=== PATIENT | female | born 1980 | race Caucasian/White ===

== ENCOUNTER → 2024-06-10 | Outpatient (CLI) | payer MEDICARE ==
--- NOTE | 2024-06-21 09:40 | MM ---
Reason for Exam: Screening (asymptomatic). Baseline mammogram. Patient History: Menarche at age 12. First Full-Term at age 28. Patient has history of breast feeding. Patient tested for BRCA1 outcome was positive. Patient tested for BRCA2 outcome was positive. Paternal aunt had breast cancer, age 30. Last menstrual period: 06/02/2024 Prior Study Comparison: Patient's first Mammogram. Tissue Density: There are scattered areas of fibroglandular density. Findings: Analyzed By CAD. There is no suspicious group of microcalcifications or new suspicious mass in either breast. Overall Assessment: Negative, BI-RAD 1 Management: Screening Mammogram of both breasts in 1 year. . Patient should continue monthly self-breast exams. A clinical breast exam by your physician is recommended on an annual basis. This exam should not preclude additional follow-up of suspicious palpable abnormalities. Note on Skye scores and lifetime risk: 1. A Skye score greater than 3% is considered moderate risk. If this is the case, consider specialist referral to assess eligibility for a risk reducing agent. 2. If overall lifetime risk for the development of breast cancer is 20% or higher, the patient may qualify for future screening with alternating mammogram and breast MRI. [facility], , 06/21/2024 9:37 AM. Electronically signed and approved by: Celestino Weller M.D. Radiologis
== END | disposition home or self-care (01) ==
LOC: RADMAMWWP 10:49
PROVIDERS: ATTEND Family Medicine
DX: Z12.31 Encounter for screening mammogram for malignant neoplasm of breast
CPT/HCPCS: 77067

== ENCOUNTER → 2024-06-28 | Outpatient (CLI) | payer MEDICARE ==
--- NOTE | 2024-06-28 12:24 | CT ---
EXAMINATION TYPE: CT ChestAbdPelvis wo/w con CT DLP: 2467 mGycm, Automated exposure control for dose reduction was used. DATE OF EXAM: 06/28/2024 11:45 AM COMPARISON: None CLINICAL INDICATION:Female, 43 years old with history of R53.83 fatigue Z80.9 family hx cancer; PHH, r/o right adrenal cancer, pt states shes been having bright red bloody stools, constipation, SOB x6 months Technique: Multiple axial images of the chest, abdomen, and pelvis were obtained before and after the intravenous administration of 100 mL Isovue-300. Oral contrast was administered. Two-dimensional cor onal and sagittal reconstructions were obtained. Findings: CHEST: LUNGS/ PLEURA: The lung parenchyma appears unremarkable. AIRWAY: Patent and unremarkable.. HEART: Size within normal limits. No pericardial effusion. MEDIASTINUM: No evidence of adenopathy. VASCULATURE: No aortic aneurysm. MUSCULOSKELETAL: No acute osseous abnormalities. No aggressive osseous lesion. SOFT TISSUES/LYMPH NODES: Unremarkable. LOWER NECK: No significant findings. ABDOMEN: ABDOMEN LIVER: Unremarkable GALLBLADDER AND BILE DUCTS: The gallbladder is surgically absent. No biliary duct dilatation. PANCREAS: Unremarkable. SPLEEN: Unremarkable. ADRENAL GLANDS: Left adrenal gland is unremarkable. Post surgical changes from right adrenalectomy. N o suspicious soft tissue within the surgical bed to suggest recurrence. KIDNEYS AND URETERS: No evidence of hydronephrosis or renal calculus. The ureters are unremarkable. PELVIS BLADDER: Incompletely distended but grossly unremarkable. REPRODUCTIVE: Gas-filled region within the uterus likely representing a tampon. Left uterine posterio r fundal round 2.9 cm lesion (series 13, image 60). ABDOMEN & PELVIS STOMACH AND BOWEL: Postsurgical changes from gastric sleeve. Enteric contrast reaches the ileocecal j unction. There is eccentric wall thickening of the ascending colon near the cecum measuring up to 1.8 cm measuring approximately 3.5 cm in length (series 11, image 76). No surrounding inflammatory mcneal es identified. The appendix is within normal limits moderate stool burden within the proximal colon s pecifically the hepatic flexure. No evidence of bowel obstruction. PERITONEUM: No evidence of pneumoperitoneum or free fluid. VASCULATURE: No evidence of aortic aneurysm. MUSCULOSKELETAL: No acute osseous abnormalities. No aggressive osseous lesion. LYMPH NODES: No evidence for lymphadenopathy. SOFT TISSUE/ABDOMINAL WALL: Unremarkable IMPRESSION: 1. Abnormal eccentric wall thickening of the ascending colon adjacent to the cecum concerning for pr imary colon neoplasm. Colonoscopy is recommended. 2. Post surgical changes from prior right adrenalectomy. No suspicious soft tissue within the surgic al bed to suggest local recurrence. 3. Left posterior pelvis 2.9 cm lesion which may represent a pedunculated fibroid. Further evaluatio n with ultrasound is recommended. 4. No CT evidence for abnormality within the chest. [facility], , 06/28/2024 12:21 PM
== END | disposition home or self-care (01) ==
LOC: RADCTMAIN 09:39
PROVIDERS: ATTEND Family Medicine
DX: D35.00 Benign neoplasm of unspecified adrenal gland (principal); N39.9 Disorder of urinary system, unspecified; K92.1 Melena; R53.83 Other fatigue; K63.89 Other specified diseases of intestine; Z90.89 Acquired absence of other organs
CPT/HCPCS: 71270; 74178

== ENCOUNTER 2024-07-01 10:15 | Observation (INO) | payer MEDICARE, OTHER ==
[2024-07-01] MEDS: SODIUM CHLORIDE 0.9% 1,000 ML IV STA (11:38)
[2024-07-01] MEDS: FAMOTIDINE 20 MG/2 ML VIAL IV STA (11:39)
[2024-07-01] MEDS: KETOROLAC 15 MG/ML 1 ML VIAL IVP STA (11:40)
[2024-07-01] MEDS: ONDANSETRON 4 MG/2 ML VIAL IVP STA (11:41)
[2024-07-01] MEDS: PANTOPRAZOLE 40 MG/10 ML VIAL IVP STA (11:42)
[2024-07-01 12:09] LABS: Basophils % (A) 1 %; Eosinophils # (A) 0.2 k/uL (0-0.7); Eosinophils % (A) 3 %; HGB 11.7 gm/dL (11.4-16.0); Lymphocytes # (A) 1.8 k/uL (1.0-4.8); Lymphocytes % (A) 31 %; MCH 26.6 pg (25.0-35.0); MCHC 32.5 g/dL (31.0-37.0); MCV 81.9 fL (80.0-100.0); Monocytes # (A) 0.3 k/uL (0-1.0); Monocytes % (A) 6 %; Neutrophils # (A) 3.4 k/uL (1.3-7.7); Neutrophils % (A) 58 %; Platelet Count 318 k/uL (150-450); RBC 4.39 m/uL (3.80-5.40); RDW 15.4 % (11.5-15.5); WBC 5.8 k/uL (3.8-10.6)
[2024-07-01 12:18] LABS: Appearance,Urine Clear (Clear); Bilirubin,Urine Negative (Negative); Blood,Urine Negative (Negative); Color,Urine Colorless; Glucose,Urine (UA) Negative (Negative); Ketones,Urine Negative (Negative); Leukocyte Esterase,Urine Negative (Negative); Nitrite,Urine Negative (Negative); PH, Urine 6.5 (5.0-8.0); Protein,Urine Negative (Negative); Specific Gravity,Urine 1.004 (1.001-1.035); Urobilinogen,Urine <2.0 mg/dL (<2.0)
[2024-07-01 12:21] LABS: ALT 14 U/L (4-34); AST 43 U/L (14-36); African American GFR (CKD) >90 (>60 ml/min/1.73 sqM); Albumin 3.5 g/dL (3.5-5.0); Alkaline Phosphatase 51 U/L (38-126); Amylase 41 U/L (30-110); Anion Gap 4 mmol/L; Blood Urea Nitrogen 16 mg/dL (7-17); Calcium 8.9 mg/dL (8.4-10.2); Carbon Dioxide 27 mmol/L (22-30); Chloride 110 mmol/L (98-107); Glucose 87 mg/dL (74-99); Lipase 298 U/L (23-300); Non-African American GFR(CKD) >90 (>60 ml/min/1.73 sqM); Potassium 4.3 mmol/L (3.5-5.1); Sodium 141 mmol/L (137-145); Total Bilirubin 0.5 mg/dL (0.2-1.3); Total Protein 6.1 g/dL (6.3-8.2)
[2024-07-01 12:40] LABS: C Reactive Protein <0.5 mg/dL (<1.0)
--- NOTE | 2024-07-01 13:03 | ED ---
Abdominal Pain HPI - General Chief Complaint: Abdominal Pain Stated Complaint: GI issues Time Seen by Provider: 07/01/24 10:33 Source: patient, RN notes reviewed Mode of arrival: ambulatory Limitations: no limitations - History of Present Illness Initial Comments: This is a 43-year-old female presenting with GI symptoms since December 2023. Patient endorses recently receiving abdominal CT scan as requested by Dr. Pacheco, her primary care, where it was discovered she had a neoplasm noted in her colon. Patient was advised by Dr. Pacheco to proceed to ER to expedite endoscopy and colonoscopy procedures to identify neoplasm. Patient endorses hematochezia and postprandial vomiting for the past 6 months. States she was at that time diagnosed with gastroparesis. Patient also endorses constipation despite daily use of laxatives, often only going once per week. Patient states she often feels bloated. States stool often appears black to yellow and slimy. Patient also endorses acid reflux-like symptoms with nausea, dizziness and near syncope. Also mentions decreased urinary output without burning with urination. Endorses history of gastric sleeve and pheochromocytoma. Patient denies history of IBS, Crohn's disease, ulcerative colitis, celiac disease. MD Complaint: abdominal pain Onset/Timin -: month(s) Location: LUQ, RLQ - Related Data Home Medications Medication Instructions Recorded Confirmed ALPRAZolam [Xanax] 0.25 mg PO BID PRN 07/01/24 07/01/24 Albuterol Sulfate [Ventolin HFA] 2 puff INHALATION RT-BID 07/01/24 07/01/24 Ascorbic Acid [Vitamin C] 1,000 mg PO DAILY 07/01/24 07/01/24 Biotin [Biotin Disolve] 10,000 mcg PO DAILY 07/01/24 07/01/24 Cholecalciferol (Vitamin D3) 50 mcg PO DAILY 07/01/24 07/01/24 [Vitamin D3 (50 Mcg = 2000 Iu)] Cranberry Fruit Extract [Cranberry] 500 mg PO DAILY 07/01/24 07/01/24 Cyanocobalamin (Vitamin B-12) 1,000 mcg PO DAILY 07/01/24 07/01/24 [Vitamin B-12] DULoxetine HCL [Cymbalta] 30 mg PO HS 07/01/24 07/01/24 Immunity Gummy 1 tab PO DAILY 07/01/24 07/01/24 L.acidoph,Paracasei, B.lactis 1 cap PO DAILY 07/01/24 07/01/24 [Probiotic] Magnesium Glycinate 200 mg PO DAILY 07/01/24 07/01/24 Multivitamins, Thera [Multivitamin 1 tab PO DAILY 07/01/24 07/01/24 (formulary)] Naproxen [Naprosyn] 500 mg PO BID 07/01/24 07/01/24 Zolpidem [Ambien] 5 mg PO HS PRN 07/01/24 07/01/24 hydrOXYzine HCL [Atarax] 25 mg PO BID 07/01/24 07/01/24 Allergies Allergy/AdvReac Type Severity Reaction Status Date / Time amoxicillin Allergy Rash/Hives Verified 07/01/24 15:09 Iodinated Contrast Media Allergy Rash/Hives Verified 07/01/24 15:09 codeine AdvReac Vomiting Verified 07/01/24 15:09 Review of Systems ROS Statement: Those systems with pertinent positive or pertinent negative responses have been documented in the HPI. ROS Other: All systems not noted in ROS Statement are negative. Past Medical History Past Medical History: Cancer, Chest Pain / Angina, CVA/TIA, Fibromyalgia, Seizure Disorder Additional Past Medical History / Comment(s): Adrenal cancer/pheochromocytoma in 2019. Patrice Bar. Thinning of left atrial wall. Past Surgical History: Bariatric Surgery, Section, Cholecystectomy Additional Past Surgical History / Comment(s): in 2009&2013. Gastric sleeve in 2017. Tumor removal with gallbladder removal in 2019. Past Psychological History: Anxiety Smoking Status: Never smoker Past Alcohol Use History: None Reported Past Drug Use History: Marijuana General Exam Limitations: no limitations General appearance: alert, in no apparent distress Head exam: Present: atraumatic, normocephalic, normal inspection Eye exam: Present: normal appearance, PERRL, EOMI. Absent: scleral icterus, conjunctival injection, periorbital swelling ENT exam: Present: normal exam, mucous membranes moist Neck exam: Present: normal inspection. Absent: tenderness, meningismus, lymphadenopathy Respiratory exam: Present: normal lung sounds bilaterally. Absent: respiratory distress, wheezes, rales, rhonchi, stridor Cardiovascular Exam: Present: regular rate, normal rhythm, normal heart sounds. Absent: systolic murmur, diastolic murmur, rubs, gallop, clicks GI/Abdominal exam: Present: soft, tenderness (Positive diffuse tenderness especially in epigastric left upper quadrant and right lower quadrant with voluntary guarding. Positive tympanic tenderness especially in same regions. Negative McBurney's point.), normal bowel sounds, diminished bowel sounds. Absent: distended, guarding, rebound, rigid Extremities exam: Present: normal inspection, full ROM, normal capillary refill. Absent: tenderness, pedal edema, joint swelling, calf tenderness Back exam: Present: normal inspection Neurological exam: Present: alert, oriented X3, CN II-XII intact Psychiatric exam: Present: normal affect, normal mood Skin exam: Present: warm, dry, intact, normal color. Absent: rash Course Vital Signs 07/01/24 07/01/24 10:22 13:06 Temperature 98.1 F Pulse Rate 102 H Respiratory 16 16 Rate Blood Pressure 107/64 105/70 O2 Sat by Pulse 99 Oximetry Medical Decision Making - Medical Decision Making Was pt. sent in by a medical professional or institution (, PA, INDUSTRIAL ENGINEERING PROFESSOR, urgent care, hospital, or jail...) When possible be specific @ -He has. Patient was sent by Dr. Pacheco, her primary care, who sent her to expedite diagnostic testing following recent discovery of colonic neoplasm and CT scan from Friday, June 28, 2024. Did you speak to anyone other than the patient for history (EMS, parent, family, police, friend...)? What history was obtained from this source @ -No Did you review nursing and triage notes (agree or disagree)? Why? @ -I reviewed and agree with nursing and triage notes Were old charts reviewed (outside hosp., previous admission, EMS record, old EKG, old radiological studies, urgent care reports/EKG's, jail records)? Report findings @ -CT scan from June 28 reviewed noting discovery of colonic neoplasm and uterine fibroid. Differential Diagnosis (chest pain, altered mental status, abdominal pain women, abdominal pain men, vaginal bleeding, weakness, fever, dyspnea, syncope, headache, dizziness, GI bleed, back pain, seizure, CVA, palpatations, mental health, musculoskeletal)? @ -Differential Abdominal Pain Women: Appendicitis, Cholecystitis, diverticulosis, ischemic bowel, pancreatitis, hepatitis, UTI, gastroenteritis, AAA, incarcerated hernia, bowel obstruction, constipation, inflammatory bowel, hepatitis, peptic ulcer disease, splenic infarction, perforated viscus, vulvitis, ovarian torsion, PID, kidney stone, placenta abruption, this is not meant to be an all-inclusive list EKG interpreted by me (3pts min.). @ -As above X-rays interpreted by me (1pt min.). @ -None done CT interpreted by me (1pt min.). @ -None done U/S interpreted by me (1pt. min.). @ -None done What testing was considered but not performed or refused? (CT, X-rays, U/S, labs)? Why? @ -None What meds were considered but not given or refused? Why? @ -None Did you discuss the management of the patient with other professionals (professionals i.e. , PA, INDUSTRIAL ENGINEERING PROFESSOR, lab, RT, psych nurse, social worker psychiatric, sandblaster glass, teacher, biological technical officer, case liner)? Give summary @ -Spoke with Dr. Pacheco regarding patient's ongoing management and consult with Mike Patel and Dr. Mercedes for expedited upper/lower endoscopy/colonoscopy. Was smoking cessation discussed for >3mins.? @ -No Was critical care preformed (if so, how long)? @ -No Were there social determinants of health that impacted care today? How? (Homelessness, low income, unemployed, alcoholism, drug addiction, transportation, low edu. Level, literacy, decrease access to med. care, penitentiary, rehab)? @ -No Was there de-escalation of care discussed even if they declined (Discuss DNR or withdrawal of care, Hospice)? DNR status @ -No What co-morbidities impacted this encounter? (DM, HTN, Smoking, COPD, CAD, Cancer, CVA, ARF, Chemo, Hep., AIDS, mental health diagnosis, sleep apnea, morbid obesity)? @ -None Was patient admitted / discharged? Hospital course, mention meds given and route, prescriptions, significant lab abnormalities, going to OR and other pertinent info. @ -Admitted. Initial lab work obtained and patient provided Zofran, Pepcid and Protonix for abdominal pain. Patient noted ongoing pain and given Dilaudid and after patient noted codeine only cause GI symptoms. Initially spoke to Dr. Bishop mcdermott regarding surgical care for patient. Then spoke to Dr. Pacheco then who advised of preference for [facility], Dr. Mercedes for patient care. Spoke to Dr. Ruth again to cancel consult with him. Undiagnosed new problem with uncertain prognosis? @ -No Drug Therapy requiring intensive monitoring for toxicity (Heparin, Nitro, Insulin, Cardizem)? @ -No Were any procedures done? @ -No Diagnosis/symptom? @ -Colonic neoplasm Acute, or Chronic, or Acute on Chronic? @ -Acute on chronic Uncomplicated (without systemic symptoms) or Complicated (systemic symptoms)? @ -Complicated Side effects of treatment? @ -No Exacerbation, Progression, or Severe Exacerbation? @ -Exacerbation Poses a threat to life or bodily function? How? (Chest pain, USA, ND, pneumonia, PE, COPD, DKA, ARF, appy, cholecystitis, CVA, Diverticulitis, Homicidal, Suicidal, threat to staff... and all critical care pts) @ -Possible. Neoplasm with unknown etiology - Lab Data Result diagrams: 07/01/24 11:37 07/01/24 11:37 Lab Results 07/01/24 07/01/24 07/01/24 Range/Units 11:37 11:37 11:37 WBC 5.8 (3.8-10.6) k/uL RBC 4.39 (3.80-5.40) m/uL Hgb 11.7 (11.4-16.0) gm/dL Hct 36.0 (34.0-46.0) % MCV 81.9 (80.0-100.0) fL MCH 26.6 (25.0-35.0) pg MCHC 32.5 (31.0-37.0) g/dL RDW 15.4 (11.5-15.5) % Plt Count 318 (150-450) k/uL MPV 7.0 Neutrophils % 58 % Lymphocytes % 31 % Monocytes % 6 % Eosinophils % 3 % Basophils % 1 % Neutrophils # 3.4 (1.3-7.7) k/uL Lymphocytes # 1.8 (1.0-4.8) k/uL Monocytes # 0.3 (0-1.0) k/uL Eosinophils # 0.2 (0-0.7) k/uL Basophils # 0.0 (0-0.2) k/uL Sodium (137-145) mmol/L Potassium (3.5-5.1) mmol/L Chloride (98-107) mmol/L Carbon Dioxide (22-30) mmol/L Anion Gap mmol/L BUN (7-17) mg/dL Creatinine (0.52-1.04) mg/dL Est GFR (CKD-EPI)AfAm (>60 ml/min/1.73 sqM) Est GFR (CKD-EPI)NonAf (>60 ml/min/1.73 sqM) Glucose (74-99) mg/dL Plasma Lactic Acid Donny (0.7-2.0) mmol/L Calcium (8.4-10.2) mg/dL Total Bilirubin (0.2-1.3) mg/dL AST (14-36) U/L ALT (4-34) U/L Alkaline Phosphatase (38-126) U/L C-Reactive Protein (<1.0) mg/dL Total Protein (6.3-8.2) g/dL Albumin (3.5-5.0) g/dL Amylase (30-110) U/L Lipase (23-300) U/L Urine Color Colorless Urine Appearance Clear (Clear) Urine pH 6.5 (5.0-8.0) Ur Specific [place] 1.004 (1.001-1.035) Urine Protein Negative (Negative) Urine Glucose (UA) Negative (Negative) Urine Ketones Negative (Negative) Urine Blood Negative (Negative) Urine Nitrite Negative (Negative) Urine Bilirubin Negative (Negative) Urine Urobilinogen <2.0 (<2.0) mg/dL Ur Leukocyte Esterase Negative (Negative) Urine HCG, Qual Not Detected (Not Detectd) 07/01/24 07/01/24 Range/Units 11:37 11:37 WBC (3.8-10.6) k/uL RBC (3.80-5.40) m/uL Hgb (11.4-16.0) gm/dL Hct (34.0-46.0) % MCV (80.0-100.0) fL MCH (25.0-35.0) pg MCHC (31.0-37.0) g/dL RDW (11.5-15.5) % Plt Count (150-450) k/uL MPV Neutrophils % % Lymphocytes % % Monocytes % % Eosinophils % % Basophils % % Neutrophils # (1.3-7.7) k/uL Lymphocytes # (1.0-4.8) k/uL Monocytes # (0-1.0) k/uL Eosinophils # (0-0.7) k/uL Basophils # (0-0.2) k/uL Sodium 141 (137-145) mmol/L Potassium 4.3 (3.5-5.1) mmol/L Chloride 110 H (98-107) mmol/L Carbon Dioxide 27 (22-30) mmol/L Anion Gap 4 mmol/L BUN 16 (7-17) mg/dL Creatinine 0.68 (0.52-1.04) mg/dL Est GFR (CKD-EPI)AfAm >90 (>60 ml/min/1.73 sqM) Est GFR (CKD-EPI)NonAf >90 (>60 ml/min/1.73 sqM) Glucose 87 (74-99) mg/dL Plasma Lactic Acid Donny 1.0 (0.7-2.0) mmol/L Calcium 8.9 (8.4-10.2) mg/dL Total Bilirubin 0.5 (0.2-1.3) mg/dL AST 43 H (14-36) U/L ALT 14 (4-34) U/L Alkaline Phosphatase 51 (38-126) U/L C-Reactive Protein <0.5 (<1.0) mg/dL Total Protein 6.1 L (6.3-8.2) g/dL Albumin 3.5 (3.5-5.0) g/dL Amylase 41 (30-110) U/L Lipase 298 (23-300) U/L Urine Color Urine Appearance (Clear) Urine pH (5.0-8.0) Ur Specific [place] (1.001-1.035) Urine Protein (Negative) Urine Glucose (UA) (Negative) Urine Ketones (Negative) Urine Blood (Negative) Urine Nitrite (Negative) Urine Bilirubin (Negative) Urine Urobilinogen (<2.0) mg/dL Ur Leukocyte Esterase (Negative) Urine HCG, Qual (Not Detectd) Disposition Clinical Impression: Colon neoplasm, Hematochezia, Left upper quadrant abdominal pain Disposition: ADMITTED IP TO THIS HOSP Condition: Fair Instructions (If sedation given, give patient instructions): Abdominal Pain (ED) Is patient prescribed a controlled substance at d/c from ED?: No Referrals: Hector Pacheco MD [Primary Care Provider] - 1-2 days Joseph Mercedes MD [REFERRING] - 1-2 days Time of Disposition: 15:35 Decision Date: 07/01/24 Decision Time: 15:35
[2024-07-01] MEDS: HYDROmorphone 0.5 MG/0.5 ML SYRINGE IVP STA (13:04)
[2024-07-01] MEDS: MAG HYDROX/AL HYDROX/SIMETH 30 ML, HYOSCYAMINE ELIXIR 10 ML PO STA (13:04)
--- NOTE | 2024-07-01 14:49 | P.GSHP ---
History of Present Illness H&P Date: 07/01/24 CHIEF COMPLAINT: Abdominal pain HISTORY OF PRESENT ILLNESS: This is a 43-year-old female who presented to the hospital due to abdominal pain with episodes of nausea and vomiting. Also intermittent episodes of bright red blood and black stools. Patient reports issues with constipation and having to be on laxatives daily. She had a CT scan of the abdomen and pelvis completed outpatient by her PCP that had reported abnormal eccentric wall thickening of the ascending colon adjacent to the cecum concerning for primary colon neoplasm. Patient complains of abdominal bloating. Reports decreased appetite. She does report a 15 pound weight gain. She has been having night sweats. She does have a history of adrenal cancer in 2019 status post resection. She has a history of an aunt with rectal cancer. Patient denies any smoking denies any alcohol use. She reports her last EGD was in 2017 and was unremarkable. PAST MEDICAL HISTORY: Adrenal cancer, pheochromocytoma in 2019 thinning of left atrial wall. TIAs, seizures PAST SURGICAL HISTORY: Sleeve gastrectomy 2017, x 2, cholecystectomy, adrenal tumor removed with gallbladder removal in 2019 MEDICATIONS: See below ALLERGIES: See below SOCIAL HISTORY: No illicit drug use. REVIEW OF SYSTEMS: CONSTITUTIONAL: Denies fever or chills. HEENT: Denies blurred vision, vision changes, or eye pain. Denies hemoptysis CARDIOVASCULAR: Denies chest pain or pressure. RESPIRATORY: No shortness of breath. GASTROINTESTINAL: See HPI for pertinent findings HEMATOLOGIC: Denies bleeding disorders. GENITOURINARY: Denies any blood in urine or increased urinary frequency. SKIN: Denies pruitis. Denies rash. PHYSICAL EXAM: VITAL SIGNS: Reviewed GENERAL: Well-developed in no acute distress. HEENT: No sclera icterus. Extraocular movements grossly intact. Moist buccal mucosa. Head is atraumatic, normocephalic. No nasal drainage. ABDOMEN: Soft. Nondistended. Very tender with palpation of the right lower abdomen left upper abdomen and epigastric area NEUROLOGIC: Alert and oriented. Cranial nerves II through XII grossly intact. LABORATORY DATA: WBC 5.8 hemoglobin 11.7 platelets 318 Sodium 141 potassium 4.3 creatinine 0.68 IMAGING: CT scan of chest abdomen pelvis reports abnormal eccentric wall thickening of t he ascending colon adjacent to the cecum concerning for primary colon neoplasm. Colonoscopy is recommended. Postsurgical changes from prior right adrenalectomy. No suspicious soft tissue within the surgical bed to suggest local recurrence. Left posterior pelvis 2.9 cm lesion which may represent a fibroid. No CT scan evidence of abnormality within the chest. ASSESSMENT: 1. Eccentric wall thickening of the ascending colon adjacent to the cecum concerning of primary colon neoplasm 2. GI bleed with bright red blood per rectum as well as black stools 3. Family history of rectal cancer 4. History of adrenal cancer 5. History of pheochromocytoma PLAN: -Patient scheduled for EGD and colonoscopy tomorrow with Dr. Gambino -Clear liquid diet today -Start GoLytely bowel prep -N.p.o. after midnight -Check CEA level -Continue pain management Physician Business Banking Representative note has been reviewed by physician. Signing provider agrees with the documented findings, assessment, and plan of care. Past Medical History Past Medical History: Cancer, Chest Pain / Angina, CVA/TIA, Fibromyalgia, Seizure Disorder Additional Past Medical History / Comment(s): Adrenal cancer/pheochromocytoma in 2019. Patrice Bar. Thinning of left atrial wall. Past Surgical History: Bariatric Surgery, Section, Cholecystectomy Additional Past Surgical History / Comment(s): in 2008&2013. Gastric sleeve in 2017. Tumor removal with gallbladder removal in 2019. Past Psychological History: Anxiety Smoking Status: Never smoker Past Alcohol Use History: None Reported Past Drug Use History: Marijuana Medications and Allergies Allergies Allergy/AdvReac Type Severity Reaction Status Date / Time amoxicillin Allergy Rash/Hives Verified 07/01/24 10:31 Iodinated Contrast Media Allergy Rash/Hives Verified 07/01/24 10:31 codeine AdvReac Vomiting Verified 07/01/24 10:31 Surgical - Exam Vital Signs Temp Pulse Resp BP Pulse Ox 98.1 F 102 H 16 107/64 99 07/01/24 10:22 07/01/24 10:22 07/01/24 10:22 07/01/24 10:22 07/01/24 10:22 Results - Labs 07/01/24 11:37 07/01/24 11:37 Abnormal Lab Results - Last 24 Hours (Table) 07/01/24 Range/Units 11:37 Chloride 110 H (98-107) mmol/L AST 43 H (14-36) U/L Total Protein 6.1 L (6.3-8.2) g/dL Diabetes panel 07/01/24 Range/Units 11:37 Sodium 141 (137-145) mmol/L Potassium 4.3 (3.5-5.1) mmol/L Chloride 110 H (98-107) mmol/L Carbon Dioxide 27 (22-30) mmol/L BUN 16 (7-17) mg/dL Creatinine 0.68 (0.52-1.04) mg/dL Glucose 87 (74-99) mg/dL Calcium 8.9 (8.4-10.2) mg/dL AST 43 H (14-36) U/L ALT 14 (4-34) U/L Alkaline Phosphatase 51 (38-126) U/L Total Protein 6.1 L (6.3-8.2) g/dL Albumin 3.5 (3.5-5.0) g/dL Calcium panel 07/01/24 Range/Units 11:37 Calcium 8.9 (8.4-10.2) mg/dL Albumin 3.5 (3.5-5.0) g/dL Pituitary panel 07/01/24 Range/Units 11:37 Sodium 141 (137-145) mmol/L Potassium 4.3 (3.5-5.1) mmol/L Chloride 110 H (98-107) mmol/L Carbon Dioxide 27 (22-30) mmol/L BUN 16 (7-17) mg/dL Creatinine 0.68 (0.52-1.04) mg/dL Glucose 87 (74-99) mg/dL Calcium 8.9 (8.4-10.2) mg/dL Adrenal panel 07/01/24 Range/Units 11:37 Sodium 141 (137-145) mmol/L Potassium 4.3 (3.5-5.1) mmol/L Chloride 110 H (98-107) mmol/L Carbon Dioxide 27 (22-30) mmol/L BUN 16 (7-17) mg/dL Creatinine 0.68 (0.52-1.04) mg/dL Glucose 87 (74-99) mg/dL Calcium 8.9 (8.4-10.2) mg/dL Total Bilirubin 0.5 (0.2-1.3) mg/dL AST 43 H (14-36) U/L ALT 14 (4-34) U/L Alkaline Phosphatase 51 (38-126) U/L Total Protein 6.1 L (6.3-8.2) g/dL Albumin 3.5 (3.5-5.0) g/dL
[2024-07-01] MEDS ORDERED: HYDROmorphone 1 MG/ML 1 ML SYRINGE IVP PRN (14:50)
[2024-07-01] MEDS ORDERED: ONDANSETRON 4 MG/2 ML VIAL IVP PRN (14:51)
[2024-07-01] MEDS: PEG 3350 (236 GM/BTL) + LYTES 4,000 ML BOTTLE PO STA (16:10)
[2024-07-01 19:10] LABS: Erythrocyte Sedimentation Rate 11 mm/Hr (0-20)
[2024-07-01] MEDS ORDERED: ZOLPIDEM 5 MG TAB PO PRN (20:50)
[2024-07-01] MEDS ORDERED: ALPRAZolam 0.25 MG TAB PO PRN (20:50)
[2024-07-01] MEDS: DULoxetine HCL 30 MG CAPSULE.DR PO SCH (21:07)
[2024-07-01] MEDS: hydrOXYzine HCL 25 MG TAB PO SCH (21:07)
[2024-07-01] MEDS: HYDROmorphone 1 MG/ML 1 ML SYRINGE IVP PRN (21:08)
[2024-07-01] MEDS: DEXTROSE 5%-0.45% NACL 1,000 ML IV SCH (21:08)
[2024-07-02] MEDS: CALCIUM CARBONATE 500 MG CHEWABLE PO PRN (07:57)
[2024-07-02] MEDS: ALBUTEROL NEBULIZED 2.5 MG/3 ML INHALATION SCH (09:02)
[2024-07-02] MEDS: ONDANSETRON 4 MG/2 ML VIAL IVP PRN (09:32)
--- NOTE | 2024-07-02 10:28 | P.GSCN ---
History of Present Illness Consult date: 07/02/24 History of present illness: CHIEF COMPLAINT: Abdominal pain HISTORY OF PRESENT ILLNESS: This is a 43-year-old female who presented to the hospital due to abdominal pain with episodes of nausea and vomiting. Also intermittent episodes of bright red blood and black stools. Patient reports issues with constipation and having to be on laxatives daily. She had a CT scan of the abdomen and pelvis completed outpatient by her PCP that had reported abnormal eccentric wall thickening of the ascending colon adjacent to the cecum concerning for primary colon neoplasm. Patient complains of abdominal bloating. Reports decreased appetite. She does report a 15 pound weight gain. She has been having night sweats. She does have a history of adrenal cancer in 2019 status post resection. She has a history of an aunt with rectal cancer. Patient denies any smoking denies any alcohol use. She reports her last EGD was in 2017 and was unremarkable. Patient seen and examined with Dr. Mercedes PAST MEDICAL HISTORY: Adrenal cancer, pheochromocytoma in 2019 thinning of left atrial wall. TIAs, seizures PAST SURGICAL HISTORY: Sleeve gastrectomy 2017, x 2, cholecystectomy, adrenal tumor removed with gallbladder removal in 2019 MEDICATIONS: See below ALLERGIES: See below SOCIAL HISTORY: No illicit drug use. REVIEW OF SYSTEMS: CONSTITUTIONAL: Denies fever or chills. HEENT: Denies blurred vision, vision changes, or eye pain. Denies hemoptysis CARDIOVASCULAR: Denies chest pain or pressure. RESPIRATORY: No shortness of breath. GASTROINTESTINAL: See HPI for pertinent findings HEMATOLOGIC: Denies bleeding disorders. GENITOURINARY: Denies any blood in urine or increased urinary frequency. SKIN: Denies pruitis. Denies rash. PHYSICAL EXAM: VITAL SIGNS: Reviewed GENERAL: Well-developed in no acute distress. HEENT: No sclera icterus. Extraocular movements grossly intact. Moist buccal mucosa. Head is atraumatic, normocephalic. No nasal drainage. ABDOMEN: Soft. Nondistended. Very tender with palpation of the right lower abdomen left upper abdomen and epigastric area NEUROLOGIC: Alert and oriented. Cranial nerves II through XII grossly intact. LABORATORY DATA: WBC 5.8 hemoglobin 11.7 platelets 318 Sodium 141 potassium 4.3 creatinine 0.68 IMAGING: CT scan of chest abdomen pelvis reports abnormal eccentric wall thickening of t he ascending colon adjacent to the cecum concerning for primary colon neoplasm. Colonoscopy is recommended. Postsurgical changes from prior right adrenalectomy. No suspicious soft tissue within the surgical bed to suggest local recurrence. Left posterior pelvis 2.9 cm lesion which may represent a fibroid. No CT scan evidence of abnormality within the chest. ASSESSMENT: 1. Eccentric wall thickening of the ascending colon adjacent to the cecum concerning of primary colon neoplasm 2. GI bleed with bright red blood per rectum as well as black stools 3. Family history of rectal cancer 4. History of adrenal cancer 5. History of pheochromocytoma PLAN: -Patient scheduled for EGD and colonoscopy today with Dr. Cronin -Patient not cleared yet after GoLytely bowel prep. Soap arelis enemas given to complete bowel prep -Keep patient n.p.o. Physician Ecommerce Project Manager note has been reviewed by physician. Signing provider agrees with the documented findings, assessment, and plan of care. Attestation Patient seen and examined at bedside. She did have bowel prep overnight and states she is having some light yellow stool. CT of the abdomen and pelvis was reviewed with finding of concentric wall thickening of the ascending colon adjacent to the cecum concerning for primary colon neoplasm. Plan is for colonoscopy and upper endoscopy later today. Recommended rectal enema prior to scope. Boni Mercedes DO Past Medical History Past Medical History: Cancer, Chest Pain / Angina, CVA/TIA, Fibromyalgia, Seizure Disorder Additional Past Medical History / Comment(s): Adrenal cancer/pheochromocytoma in 2019. Patrice Bar. Thinning of left atrial wall. History of Any Multi-Drug Resistant Organisms: None Reported Past Surgical History: Bariatric Surgery, Section, Cholecystectomy Additional Past Surgical History / Comment(s): in 2008&2012. Gastric sleeve in 2017. Tumor removal with gallbladder removal in 2019. Past Anesthesia/Blood Transfusion Reactions: No Reported Reaction Past Psychological History: Anxiety Smoking Status: Never smoker Past Alcohol Use History: None Reported Past Drug Use History: Marijuana - Past Family History Mother Family Medical History: Hypertension Father Family Medical History: Hypertension Additional Family Medical History / Comment(s): AAA, cluster head aches Medications and Allergies Home Medications Medication Instructions Recorded Confirmed Type ALPRAZolam [Xanax] 0.25 mg PO BID PRN 07/01/24 07/01/24 History Albuterol Sulfate [Ventolin HFA] 2 puff INHALATION RT-BID 07/01/24 07/01/24 History Ascorbic Acid [Vitamin C] 1,000 mg PO DAILY 07/01/24 07/01/24 History Biotin [Biotin Disolve] 10,000 mcg PO DAILY 07/01/24 07/01/24 History Cholecalciferol (Vitamin D3) 50 mcg PO DAILY 07/01/24 07/01/24 History [Vitamin D3 (50 Mcg = 2000 Iu)] Cranberry Fruit Extract [Cranberry] 500 mg PO DAILY 07/01/24 07/01/24 History Cyanocobalamin (Vitamin B-12) 1,000 mcg PO DAILY 07/01/24 07/01/24 History [Vitamin B-12] DULoxetine HCL [Cymbalta] 30 mg PO HS 07/01/24 07/01/24 History Immunity Gummy 1 tab PO DAILY 07/01/24 07/01/24 History L.acidoph,Paracasei, B.lactis 1 cap PO DAILY 07/01/24 07/01/24 History [Probiotic] Magnesium Glycinate 200 mg PO DAILY 07/01/24 07/01/24 History Multivitamins, Thera [Multivitamin 1 tab PO DAILY 07/01/24 07/01/24 History (formulary)] Naproxen [Naprosyn] 500 mg PO BID 07/01/24 07/01/24 History Zolpidem [Ambien] 5 mg PO HS PRN 07/01/24 07/01/24 History hydrOXYzine HCL [Atarax] 25 mg PO BID 07/01/24 07/01/24 History Allergies Allergy/AdvReac Type Severity Reaction Status Date / Time amoxicillin Allergy Rash/Hives Verified 07/01/24 15:09 Iodinated Contrast Media Allergy Rash/Hives Verified 07/01/24 15:09 codeine AdvReac Vomiting Verified 07/01/24 15:09 Surgical - Exam Osteopathic Statement: *. No significant issues noted on an osteopathic structural exam other than those noted in the History and Physical/Consult. Vital Signs Temp Pulse Resp BP Pulse Ox 98.1 F 102 H 16 107/64 99 07/01/24 10:22 07/01/24 10:22 07/01/24 10:22 07/01/24 10:22 07/01/24 10:22 Results - Labs 07/01/24 11:37 07/01/24 11:37 Abnormal Lab Results - Last 24 Hours (Table) 07/01/24 Range/Units 11:37 Chloride 110 H (98-107) mmol/L AST 43 H (14-36) U/L Total Protein 6.1 L (6.3-8.2) g/dL Diabetes panel 07/01/24 Range/Units 11:37 Sodium 141 (137-145) mmol/L Potassium 4.3 (3.5-5.1) mmol/L Chloride 110 H (98-107) mmol/L Carbon Dioxide 27 (22-30) mmol/L BUN 16 (7-17) mg/dL Creatinine 0.68 (0.52-1.04) mg/dL Glucose 87 (74-99) mg/dL Calcium 8.9 (8.4-10.2) mg/dL AST 43 H (14-36) U/L ALT 14 (4-34) U/L Alkaline Phosphatase 51 (38-126) U/L Total Protein 6.1 L (6.3-8.2) g/dL Albumin 3.5 (3.5-5.0) g/dL Calcium panel 07/01/24 Range/Units 11:37 Calcium 8.9 (8.4-10.2) mg/dL Albumin 3.5 (3.5-5.0) g/dL Pituitary panel 07/01/24 Range/Units 11:37 Sodium 141 (137-145) mmol/L Potassium 4.3 (3.5-5.1) mmol/L Chloride 110 H (98-107) mmol/L Carbon Dioxide 27 (22-30) mmol/L BUN 16 (7-17) mg/dL Creatinine 0.68 (0.52-1.04) mg/dL Glucose 87 (74-99) mg/dL Calcium 8.9 (8.4-10.2) mg/dL Adrenal panel 07/01/24 Range/Units 11:37 Sodium 141 (137-145) mmol/L Potassium 4.3 (3.5-5.1) mmol/L Chloride 110 H (98-107) mmol/L Carbon Dioxide 27 (22-30) mmol/L BUN 16 (7-17) mg/dL Creatinine 0.68 (0.52-1.04) mg/dL Glucose 87 (74-99) mg/dL Calcium 8.9 (8.4-10.2) mg/dL Total Bilirubin 0.5 (0.2-1.3) mg/dL AST 43 H (14-36) U/L ALT 14 (4-34) U/L Alkaline Phosphatase 51 (38-126) U/L Total Protein 6.1 L (6.3-8.2) g/dL Albumin 3.5 (3.5-5.0) g/dL
[2024-07-02] MEDS ORDERED: PROPOFOL 10 MG/ML 20 ML VIAL IV ONE (15:00)
[2024-07-02] MEDS ORDERED: ONDANSETRON 4 MG/2 ML VIAL ONE (15:00)
[2024-07-02] MEDS ORDERED: LIDOCAINE 2% (PF) 20 MG/ML 5 ML VIAL ONE (15:00)
[2024-07-02] MEDS: LACTATED RINGERS 1,000 ML IV ONE ×2 (15:12→15:24)
--- NOTE | 2024-07-02 15:57 | P.OP ---
Date of Procedure: 07/02/24 Preoperative Diagnosis: 1. GERD. 2 Colon Mass Postoperative Diagnosis: 1. Esophagitis, Gastritis, Bile Reflux 2. Poor Prep Procedure(s) Performed: 1. EGD with Biopsy 2. Colonoscopy-Aborted Anesthesia: other (Sedation) Surgeon: Sourav Cronin Pathology: other (Antral Biopsies) Condition: stable Disposition: PACU Description of Procedure: Informed consent was obtained. The procedure, its risks, benefits, and alternatives were discussed. The patient was placed in the left lateral decubitus position. The endoscope was inserted into the oropharynx and guided under direct vision into the esophagus, sleeved stomach, and duodenum. The duodenal bulb and second portion were unremarkable. The scope was withdrawn to the stomach and retroflexed. There was no hiatal hernia. There was gastritis and bile reflux noted. Biopsies were obtained for Helicobacter pylori. No erosions or ulcers. The scope was withdrawn to the esophagus. There was esophagitis. The scope was then fully withdrawn. The patient was positioned for colonoscopy. A rectal exam was performed an no masses were appreciated. The colonoscope was advanced to the rectum and sigmoid colon. The colon was very dirty and the prep was bad. At this point, the colonoscopy was aborted. The scope was withdrawn. The patient was then transferred to the recovery area in good condition. There were no apparent complications.
--- NOTE | 2024-07-02 15:59 | P.PN ---
Progress Note - Text Progress Note Date: 07/02/24 EGD was performed. See Operative Note for Details. A colonoscopy was attempted and the prep was very bad and the procedure was aborted. Will repeat colonoscopy Friday morning. Will keep patient on Clear Liquid Diet and give patient another prep over the next day and a half.
[2024-07-02] MEDS: PEG 3350 (236 GM/BTL) + LYTES 4,000 ML BOTTLE PO ONE (16:12)
[2024-07-02] MEDS: PANTOPRAZOLE 40 MG/10 ML VIAL IVP SCH (19:53)
--- NOTE | 2024-07-03 01:47 | HP ---
HISTORY AND PHYSICAL CHIEF COMPLAINT: Lightheadedness and syncope. HISTORY OF PRESENT ILLNESS: This is the first known admission for this 43-year-old white female. Several years ago, she underwent removal of a pheochromocytoma from the right adrenal gland. Over the last 6 or 7 months, she has been having some bloody stools. She had insurance issues and did not seek help. She was being referred to [facility] for a GI workup. When she was driving to work, felt lightheaded and came to emergency room. She was admitted when a CT suggested a right colon mass. REVIEW OF SYSTEMS: She has had no other current symptoms including shortness of breath, chest pain, etc. Past medical history, family history, personal and social histories are extensive and there has been no evidence of recurrent neoplasm. PHYSICAL EXAMINATION: VITAL SIGNS: Normal. HEAD, EARS, EYES, NOSE, MOUTH, AND THROAT: Normal. GENERAL: She is slightly pale. CHEST: Clear. CARDIAC: Normal. ABDOMEN: Soft, nontender. EXTREMITIES: Normal. IMPRESSION: 1. Lightheadedness and near-syncope. 2. History of gastrointestinal bleeding. 3. Possible right colon mass. 4. History of pheochromocytoma. PLAN: 1. Bedrest. 2. IV fluids. 3. Surgery consult for colonoscopy. MMODL / IJN: [id number] /
--- NOTE | 2024-07-03 02:23 | PN ---
PROGRESS NOTE DATE OF SERVICE: 07/02/2024 CHIEF COMPLAINT: Lightheadedness, GI blood loss, and lesion in the right colon. HISTORY OF PRESENT ILLNESS: This lady is doing fairly well, but she has been nauseated. She is down now for her colonoscopy. PHYSICAL EXAMINATION: Deferred. IMPRESSION: 1. Lightheadedness and syncope. 2. Gastrointestinal blood loss. 3. Possible lesion in the right colon. 4. History of pheochromocytoma. PLAN: 1. Continue with IV fluids. 2. Zofran for nausea. 3. Await results of colonoscopy. MMODL / IJN: [id number] /
[2024-07-03] MEDS: ACETAMINOPHEN TAB 325 MG TAB PO PRN (09:18)
--- NOTE | 2024-07-03 11:34 | P.PN ---
Progress Note - Text Progress Note Date: 07/03/24 MONIQUE. Patient had an EGD with Biopsy 07/02/24 which showed esophagitis, gastritis, and bile reflux. She had an attempted colonoscopy which was aborted due to poor prep VSS General-NAD Abdomen-soft, NTND ASSESSMENT: 1. Eccentric wall thickening of the ascending colon adjacent to the cecum co ncerning of primary colon neoplasm 2. GI bleed with bright red blood per rectum as well as black stools 3. Family history of rectal cancer 4. History of adrenal cancer 5. History of pheochromocytoma PLAN: -Patient scheduled for repeat colonoscopy tomorrow 07/04 -Laura bowel prep and CLD today -NPO/midnight Sourav Cronin [facility] [phone]
--- NOTE | 2024-07-03 11:59 | PN ---
PROGRESS NOTE CHIEF COMPLAINT: Lightheadedness, weakness, GI blood loss, and possible lesion in the right colon. HISTORY OF PRESENT ILLNESS: This lady is stable. She went for a colonoscopy yesterday, but the prep was poor and will be repeated on Friday. PHYSICAL EXAMINATION: GENERAL: Color is good. VITAL SIGNS: Normal. CHEST: Clear. CARDIAC: Normal. ABDOMEN: Soft, nontender. IMPRESSION: 1. Blood loss anemia. 2. Possible lesion in the right colon. 3. Lower gastrointestinal bleed. 4. History of pheochromocytoma. PLAN: Prep today and repeat colonoscopy on Friday. MMODL / IJN: [id number] /
[2024-07-03 12:39] LABS: Basophils % (A) 0 %; Eosinophils # (A) 0.1 k/uL (0-0.7); Eosinophils % (A) 3 %; HCT 37.9 % (34.0-46.0); Hypochromasia Slight; Lymphocytes # (A) 1.5 k/uL (1.0-4.8); Lymphocytes % (A) 29 %; MCH 26.2 pg (25.0-35.0); MCHC 31.7 g/dL (31.0-37.0); MCV 82.8 fL (80.0-100.0); Mean Platelet Volume 6.8; Monocytes # (A) 0.2 k/uL (0-1.0); Monocytes % (A) 4 %; Neutrophils # (A) 3.2 k/uL (1.3-7.7); Neutrophils % (A) 62 %; Platelet Count 316 k/uL (150-450); RBC 4.58 m/uL (3.80-5.40); RDW 15.1 % (11.5-15.5); WBC 5.1 k/uL (3.8-10.6)
[2024-07-03] MEDS: bisacodyL 5 MG TABLET.DR PO PRN (21:08)
[2024-07-04 06:23] LABS: Basophils % (A) 1 %; Eosinophils # (A) 0.2 k/uL (0-0.7); Eosinophils % (A) 3 %; HCT 35.7 % (34.0-46.0); HGB 11.5 gm/dL (11.4-16.0); Lymphocytes % (A) 40 %; MCH 26.1 pg (25.0-35.0); MCHC 32.2 g/dL (31.0-37.0); MCV 81.1 fL (80.0-100.0); Mean Platelet Volume 6.8; Monocytes # (A) 0.3 k/uL (0-1.0); Monocytes % (A) 6 %; Neutrophils # (A) 2.5 k/uL (1.3-7.7); Neutrophils % (A) 49 %; Platelet Count 311 k/uL (150-450); RBC 4.41 m/uL (3.80-5.40); RDW 15.1 % (11.5-15.5); WBC 5.2 k/uL (3.8-10.6)
[2024-07-04 06:37] LABS: African American GFR (CKD) >90 (>60 ml/min/1.73 sqM); Anion Gap 3 mmol/L; Blood Urea Nitrogen 5 mg/dL (7-17); Calcium 8.6 mg/dL (8.4-10.2); Carbon Dioxide 29 mmol/L (22-30); Chloride 109 mmol/L (98-107); Glucose 82 mg/dL (74-99); Non-African American GFR(CKD) >90 (>60 ml/min/1.73 sqM); Sodium 141 mmol/L (137-145)
[2024-07-04 08:28] VITALS: RESP 16
--- NOTE | 2024-07-04 14:01 | P.PN ---
Progress Note - Text Progress Note Date: 07/04/24 MONIQUE. Patient had an EGD with Biopsy 07/02/24 which showed esophagitis, gastritis, and bile reflux. She had an attempted colonoscopy which was aborted due to poor prep VSS General-NAD Abdomen-soft, NTND ASSESSMENT: 1. Eccentric wall thickening of the ascending colon adjacent to the cecum co ncerning of primary colon neoplasm 2. GI bleed with bright red blood per rectum as well as black stools 3. Family history of rectal cancer 4. History of adrenal cancer 5. History of pheochromocytoma PLAN: -Patient scheduled for repeat colonoscopy tomorrow 07/05 -Laura bowel prep and CLD today -NPO/midnight Sourav Cronin [facility] [phone]
--- NOTE | 2024-07-04 21:32 | PN ---
PROGRESS NOTE DATE OF SERVICE: 07/04/2024 CHIEF COMPLAINT: GI blood loss and a right colon lesion. HISTORY OF PRESENT ILLNESS: This lady is stable and she is being prepped. It was thought that she would have a repeat colonoscopy today, but has been changed to tomorrow. PHYSICAL EXAMINATION: CHEST: Clear. CARDIAC: Normal. ABDOMEN: Soft, nontender. IMPRESSION: 1. Right colon lesion. 2. Gastrointestinal blood loss. 3. Anemia. 4. History of pheochromocytoma. PLAN: Colonoscopy tomorrow. MMODL / IJN: [id number] /
--- NOTE | 2024-07-04 22:01 | PN ---
PROGRESS NOTE DATE OF SERVICE: 07/03/2024 CHIEF COMPLAINT: GI blood loss anemia and GI bleeding. HISTORY OF PRESENT ILLNESS: This lady is doing well and she is preparing for repeat colonoscopy. She had a poor prep and could not be completed. She feels fine otherwise. REVIEW OF SYSTEMS: She has no significant abdominal pain, shortness of breath, etc. PHYSICAL EXAMINATION: HEAD, EARS, EYES, NOSE, MOUTH, AND THROAT: Normal. NECK: Neck veins are not distended. CHEST: Clear. CARDIAC: Normal. ABDOMEN: Soft, nontender. IMPRESSION: 1. Gastrointestinal blood loss. 2. Gastrointestinal blood loss anemia. PLAN: Repeat colonoscopy. MMODL / IJN: [id number] /
[2024-07-05 08:29] VITALS: BP 111/76; PULSE 69; TEMP 98.3
[2024-07-05] MEDS ORDERED: PROPOFOL 10 MG/ML 20 ML VIAL IV ONE (08:53)
[2024-07-05] MEDS: SODIUM CHLORIDE 0.9% 500 ML 500 ML IV ONE (09:02)
--- NOTE | 2024-07-05 09:21 | P.PCN ---
Date of Procedure: 07/05/24 Preoperative Diagnosis: Colon thickening Melena Postoperative Diagnosis: Normal colon Procedure(s) Performed: Colonoscopy Anesthesia: MAC Surgeon: Boni Mercedes Pathology: none sent Condition: stable Disposition: floor Indications for Procedure: 43-year-old female presented with complaint of abdominal pain. CT of her abdomen and pelvis was concerning for thickening of the right colon and concern for possible neoplasm. She also was noted to have some melena. Secondary to this, patient was prepped for colonoscopy. Risks, benefits and alternatives were provided to the patient. Operative Findings: Normal-appearing colon Description of Procedure: The patient was brought to the endoscopy suite and placed in left lateral decubitus position and adequate sedation was achieved using conscious sedation. A digital rectal exam was performed and mild internal hemorrhoids were palpated. An endoscope was then placed in the rectum and advanced to the cecum as identified by landmarks including the appendiceal orifice and the ileocecal valve. The prep was fair. The colonoscope was then slowly withdrawn, examining for any mucosal abnormalities. The cecum, ascending, transverse, descending and sigmoid colon were visualized adequately. No obvious inflammatory lesions were found. No obvious diverticuli were noted. No obvious masses. No polyps were visualized. Hemostasis maintained. Retroflexion was performed the rectum and mild internal hemorrhoids were visible. Excess air was removed. The colonoscope withdrawn and procedure terminated. The patient was then transferred to recovery unit in stable condition. Repeat colonoscopy should be performed in 7-10 years.
--- NOTE | 2024-07-05 10:05 | P.PN ---
Progress Note - Text Progress Note Date: 07/05/24 Colonoscopy was performed this morning. Please refer to procedure note. No obvious surgical finding and no masses are noted. Patient to be advance to regular diet. Surgically stable for discharge.
--- NOTE | 2024-07-06 23:25 | DS ---
DISCHARGE SUMMARY CHIEF COMPLAINT: Near-syncope and anemia. HISTORY OF PRESENT ILLNESS AND PHYSICAL EXAMINATION: Details of this lady's history and physical can be found in the initial workup. LABORATORY STUDIES: While she was in the hospital, she had laboratory studies, details of which can be found in the laboratory section of her chart. COURSE IN THE HOSPITAL: After admission, she was placed on bedrest, started on workup for her lightheadedness. It was thought that this was related to her anemia and her history of hematochezia over the last several months. She was evaluated by Surgery and arrangements were made for her to undergo colonoscopy. CT suggested there may be something in the right colon. Her prep was poor at first attempt, but after she was cleaned out, a colonoscopy revealed that there was no pathology in the right side of the colon. After that, she was doing well, it was felt she could be discharged, and her workup will continue as an outpatient. FINAL DIAGNOSES: 1. Syncope. 2. Blood loss anemia. 3. History of gastrointestinal bleeding. 4. History of pheochromocytoma. OPERATIONS: Colonoscopy. CONSULTATIONS: Surgery. She is improved. MMODL / IJN: [id number] /
== END 2024-07-05 12:24 | disposition home or self-care (01) ==
LOC: EC 10:15 → 3SCARD 17:32
PROVIDERS: ADMIT Family Medicine; ATTEND Family Medicine
DX: R55 Syncope and collapse (principal); D50.0 Iron deficiency anemia secondary to blood loss (chronic); D35.00 Benign neoplasm of unspecified adrenal gland; K59.00 Constipation, unspecified; F41.9 Anxiety disorder, unspecified; K21.01 Gastro-esophageal reflux disease with esophagitis, with bleeding; K29.70 Gastritis, unspecified, without bleeding; Z85.858 Personal history of malignant neoplasm of other endocrine glands; Z88.1 Allergy status to other antibiotic agents; Z91.041 Radiographic dye allergy status; Z79.899 Other long term (current) drug therapy; Z82.49 Family history of ischemic heart disease and other diseases of the circulatory system; Z80.0 Family history of malignant neoplasm of digestive organs
CPT/HCPCS: 96376 ×2; 96374; 96375; 99285; 36415; 94640 ×2; 88305; 80053; 80048; 85652; 82378; 82150; 83605; 83690; 85025 ×3; 86140; 81003; 81025; 45378; 43239; 45330; G0378 ×5; J2405 ×2; J3490; J1171 ×3; J1885; J2704 ×2; J2003; J2470 ×5

== ENCOUNTER → 2024-07-22 | Outpatient (CLI) | payer OTHER ==
--- NOTE | 2024-07-22 14:18 | US ---
EXAMINATION TYPE: US transvaginal DATE OF EXAM: 07/22/2024 COMPARISON: CT 2023 CLINICAL INDICATION: Female, 43 years old with history of R93.9 ABN UTERAN BLEEDING D21.9 FIBROIDS; F ollow up from recent CT TECHNIQUE: Transvaginal (TV). Transvaginal exam only per patient's order. FINDINGS: Date of LMP: 06/28/2024 EXAM MEASUREMENTS: Uterus: 7.9 x 4.4 x 5.2 cm Endometrial Stripe: 1.4 cm Right Ovary: 3.8 x 2.1 x 2.4 cm Left Ovary: 2.8 x 1.5 x 1.5 cm 1. Uterus: retroverted, mildly heterogeneous, multiple nabothian cysts 2. Endometrium: appears wnl 3. Right Ovary: 1.9 x 1.4 x 1.8cm isoechoic area with peripheral vascularity 4. Left Ovary: multiple follicles 5. Bilateral Adnexa: left adnexa - 3.0 x 2.1 x 2.3cm lesion seen - ? pedunculated fibroid, appears s eparate from left ovary 6. Posterior cul-de-sac: small amount of free fluid Retroverted mildly heterogenous uterus with multiple nabothian cysts. Left adnexal 3.0 cm heterogenou s lesion corresponding to CT. Separate from the ovary and abuts the uterus on CT. Right ovary demonst rates a solid-appearing lesion with peripheral color flow measuring up to 1.9 cm. Endometrium is with in normal limits. Small moderate free fluid in the posterior cul-de-sac. IMPRESSION: 1. Left adnexal 3.0 cm heterogenous lesion which is separate from the left ovary and abuts the uterus on CT. This is nonspecific and could represent a pedunculated fibroid versus other etiologies. Furth er evaluation with MR pelvis with IV contrast is recommended. 2. Additional solid appearing right ovarian 1.9 cm lesion which may represent an ovarian epithelial n eoplasm versus other etiologies. Recommendation for #1. [facility], , 07/22/2024 2:16 PM
== END | disposition home or self-care (01) ==
LOC: RADUSWWP 13:11
PROVIDERS: ATTEND Family Medicine
CPT/HCPCS: 76830

== ENCOUNTER 2024-07-30 11:06 | Emergency (ER) | payer OTHER ==
[2024-07-30 11:11] VITALS: BP 125/81; PULSE 112; RESP 24; TEMP 98
--- NOTE | 2024-07-30 12:35 | ED ---
Chest Pain HPI - General Source: patient, RN notes reviewed Mode of arrival: wheelchair Limitations: no limitations <Tiffany Escobar - Last Filed: 07/30/24 12:33> <Santiago Unger - Last Filed: 07/30/24 15:14> - General Chief Complaint: Chest Pain Stated Complaint: chest pain, SOB, dizzy Time Seen by Provider: 07/30/24 11:20 - History of Present Illness Initial Comments: Quick [id number] female with a history of adrenal cancer and pheochromocytoma presenting to emergency department with multiple complaints. States that she has been constipated with abdominal pain, shortness of breath, chest pain and fatigue. (Tiffany Escobar) Dictation was produced using [employer] dictation software. please excuse any grammatical, word or spelling errors. Chief Complaint: 43-year-old female presents to the emergency department with abdominal pain History of Present Illness: Patient is 43-year-old female she has been in and out of the hospital for abdominal symptoms. States that recently she had a colonoscopy which to her understanding was okay. She was admitted few weeks ago and was seen by general surgeon who performed a colonoscopy which was unremarkable. She followed up after with specialist at [facility]. States that she is here today because she has abdominal pain along with lack of bowel movement. States that she has not had a bowel movement in approximately 2 weeks. Prior to that she had no bowel movement 2 weeks denies any fever, chills or night sweats. Patient states that she is fatigued. The ROS documented in this emergency department record has been reviewed and confirmed by me. Those systems with pertinent positive or negative responses have been documented in the HPI. All other systems are other negative and/or noncontributory. (Santiago Unger) - Related Data Home Medications Medication Instructions Recorded Confirmed ALPRAZolam [Xanax] 0.25 mg PO BID PRN 07/01/24 07/01/24 Albuterol Sulfate [Ventolin HFA] 2 puff INHALATION RT-BID 07/01/24 07/01/24 Ascorbic Acid [Vitamin C] 1,000 mg PO DAILY 07/01/24 07/01/24 Biotin [Biotin Disolve] 10,000 mcg PO DAILY 07/01/24 07/01/24 Cholecalciferol (Vitamin D3) 50 mcg PO DAILY 07/01/24 07/01/24 [Vitamin D3 (50 Mcg = 2000 Iu)] Cranberry Fruit Extract [Cranberry] 500 mg PO DAILY 07/01/24 07/01/24 Cyanocobalamin (Vitamin B-12) 1,000 mcg PO DAILY 07/01/24 07/01/24 [Vitamin B-12] DULoxetine HCL [Cymbalta] 30 mg PO HS 07/01/24 07/01/24 Immunity Gummy 1 tab PO DAILY 07/01/24 07/01/24 L.acidoph,Paracasei, B.lactis 1 cap PO DAILY 07/01/24 07/01/24 [Probiotic] Magnesium Glycinate 200 mg PO DAILY 07/01/24 07/01/24 Multivitamins, Thera [Multivitamin 1 tab PO DAILY 07/01/24 07/01/24 (formulary)] Naproxen [Naprosyn] 500 mg PO BID 07/01/24 07/01/24 Zolpidem [Ambien] 5 mg PO HS PRN 07/01/24 07/01/24 hydrOXYzine HCL [Atarax] 25 mg PO BID 07/01/24 07/01/24 Allergies Allergy/AdvReac Type Severity Reaction Status Date / Time amoxicillin Allergy Rash/Hives Verified 07/30/24 11:11 Iodinated Contrast Media Allergy Rash/Hives Verified 07/30/24 11:11 codeine AdvReac Vomiting Verified 07/30/24 11:11 Review of Systems ROS Other: All systems not noted in ROS Statement are negative. <Tiffany Escobar - Last Filed: 07/30/24 12:33> ROS Other: All systems not noted in ROS Statement are negative. <Santiago Unger - Last Filed: 07/30/24 15:14> ROS Statement: Those systems with pertinent positive or pertinent negative responses have been documented in the HPI. Past Medical History Past Medical History: Cancer, Chest Pain / Angina, CVA/TIA, Fibromyalgia, Seizure Disorder Additional Past Medical History / Comment(s): Adrenal cancer/pheochromocytoma in 2019. Patrice [facility]. Thinning of left atrial wall. History of Any Multi-Drug Resistant Organisms: None Reported Past Surgical History: Bariatric Surgery, Section, Cholecystectomy Additional Past Surgical History / Comment(s): in 2009&2013. Gastric sleeve in 2017. Tumor removal with gallbladder removal in 2019. Past Anesthesia/Blood Transfusion Reactions: No Reported Reaction Past Psychological History: Anxiety Smoking Status: Never smoker Past Alcohol Use History: None Reported Past Drug Use History: Marijuana - Past Family History Mother Family Medical History: Hypertension Father Family Medical History: Hypertension Additional Family Medical History / Comment(s): AAA, cluster head aches <Tiffany Escobar - Last Filed: 07/30/24 12:33> General Exam Limitations: no limitations <Tiffany Escobar - Last Filed: 07/30/24 12:33> <Santiago Unger - Last Filed: 07/30/24 15:14> - General Exam Comments Initial Comments: Visual Physical Exam Vital signs reviewed General: Well-appearing, nontoxic, no acute distress. Head: Normocephalic, atraumatic Eyes: PERRLA, EOMI ENT: Airway patent Chest: Nonlabored breathing Skin: No visual rash, normal skin tone Neuro: Alert and oriented 3 Musculoskeletal: No gross abnormalities (Tiffany Escobar) PHYSICAL EXAM: General Impression: Alert and oriented x3, not in acute distress HEENT: Normocephalic atraumatic, extra-ocular movements intact, pupils equal and reactive to light bilaterally, mucous membranes moist. Cardiovascular: Heart regular rate and rhythm Chest: Able to complete full sentences, no retractions, no tachypnea Abdomen: abdomen soft, non-tender, non-distended, no organomegaly Musculoskeletal: Pulses present and equal in all extremities, no peripheral edema Motor: no focal deficits noted Neurological: CN II-XII grossly intact, no focal motor or sensory deficits noted Skin: Intact with no visualized rashes Psych: Normal affect and mood (Santiago Unger) Course Vital Signs 07/30/24 11:07 Temperature 98.0 F Pulse Rate 112 H Respiratory 24 Rate Blood Pressure 125/81 O2 Sat by Pulse 97 Oximetry Chest Pain MDM <Tiffany Escobar - Last Filed: 07/30/24 12:33> <Santiago Unger - Last Filed: 07/30/24 15:14> - MDM I completed the quick note portion of this chart signed Tiffany Escobar PA-C (Tiffany Escobar) Was pt. sent in by a medical professional or institution (, PA, RN PALLIATIVE, urgent care, hospital, or fci...) When possible be specific @ -No Did you speak to anyone other than the patient for history (EMS, parent, family, police, friend...)? What history was obtained from this source @ -No Did you review nursing and triage notes (agree or disagree)? Why? @ -I reviewed and agree with nursing and triage notes Were old charts reviewed (outside hosp., previous admission, EMS record, old EKG, old radiological studies, urgent care reports/EKG's, fci records)? Report findings @ -No old charts were reviewed Differential Diagnosis (chest pain, altered mental status, abdominal pain women, abdominal pain men, vaginal bleeding, musculoskeletal, weakness, fever, dyspnea , syncope, headache, dizziness, GI bleed, back pain, seizure, CVA, palpatations, mental health)? @ -Differential Abdominal Pain Men: Appendicitis, cholecystitis, diverticulosis, ischemic bowel, pancreatitis, hepatitis, UTI, gastroenteritis, AAA, incarcerated hernia, bowel obstruction, constipation, inflammatory bowel, hepatitis, peptic ulcer disease, splenic infarction, perforated viscus, testicular torsion, this is not meant to be an all-inclusive list EKG interpreted by me (3pts min.). @ -None done X-rays interpreted by me (1pt min.). @ -None done CT interpreted by me (1pt min.). @ -CT of the abdomen pelvis shows diffuse bowel wall thickening likely acute colitis. No obstruction. U/S interpreted by me (1pt. min.). @ -None done What testing was considered but not performed or refused? (CT, X-rays, U/S, labs)? Why? @ -None What meds were considered but not given or refused? Why? @ -None Was smoking cessation discussed for >3mins.? @ -No Were there social determinants of health that impacted care today? How? (Homelessness, low income, unemployed, alcoholism, drug addiction, transportation, low edu. Level, literacy, decrease access to med. care, fci, rehab)? @ -No Was there de-escalation of care discussed even if they declined (Discuss DNR or withdrawal of care, Hospice)? DNR status @ -No What co-morbidities impacted this encounter? (DM, HTN, Smoking, COPD, CAD, C ancer, CVA, ARF, Chemo, Hep., AIDS, mental health diagnosis, sleep apnea, morbid obesity)? @ -None Was patient admitted / discharged? Hospital course, mention meds given and route, prescriptions, significant lab abnormalities, going to OR and other pertinent info. @ -43-year-old female presents to the emergency department again for abdominal pain. She has been seeing outpatient specialist regarding this. She is concerned she has pelvic cancer versus abdominal cancer. Vital signs upon arrival are within acceptable limits. Patient well-appearing with soft abdomen. Laboratory evaluation obtained. Labs are unremarkable. Lipase normal. Urinalysis negative. CT abdomen pelvis shows colitis. Patient reevaluated bedside at 3:13 PM found to be stable to condition. Patient no acute distress. Patient has an outpatient MRI scheduled. She is told to follow-up with her outpatient doctors. Did you discuss the management of the patient with other professionals (professionals i.e. , PA, RN PALLIATIVE, lab, RT, psych nurse, social work nurse, manager simulation, teacher, founder and chief technical officer, shoe parts caser)? Give summary @ -No Was critical care preformed (if so, how long)? @ -No Undiagnosed new problem with uncertain prognosis? @ -No Drug Therapy requiring intensive monitoring for toxicity (Heparin, Nitro, Insulin, Cardizem)? @ -No Were any procedures done? @ -No Diagnosis/symptom? Acute, or Chronic, or Acute on Chronic? Uncomplicated (without systemic symptoms) or Complicated (systemic symptoms)? @ -Colitis Side effects of treatment? @ -No Exacerbation, Progression, or Severe Exacerbation? @ -No Poses a threat to life or bodily function? How? (Chest pain, [place], [place], pneumonia, PE, COPD, DKA, ARF, appy, cholecystitis, CVA, Diverticulitis, Homicidal, Suicidal, threat to staff... and all critical care pts) @ -yes (Santiago Unger) Disposition <Tiffany Escobar - Last Filed: 07/30/24 12:33> Is patient prescribed a controlled substance at d/c from ED?: No Time of Disposition: 15:14 <Santiago Unger - Last Filed: 07/30/24 15:14> Clinical Impression: Colitis Disposition: HOME SELF-CARE Condition: Good Instructions (If sedation given, give patient instructions): Colitis (ED) Referrals: Hector Pacheco MD [Primary Care Provider] - 1-2 days
[2024-07-30 13:06] LABS: Basophils % (A) 1 %; Eosinophils # (A) 0.3 k/uL (0-0.7); Eosinophils % (A) 4 %; HCT 37.7 % (34.0-46.0); HGB 11.9 gm/dL (11.4-16.0); Hypochromasia Slight; Lymphocytes # (A) 1.8 k/uL (1.0-4.8); Lymphocytes % (A) 27 %; MCH 26.1 pg (25.0-35.0); MCHC 31.6 g/dL (31.0-37.0); MCV 82.5 fL (80.0-100.0); Mean Platelet Volume 6.7; Monocytes # (A) 0.3 k/uL (0-1.0); Monocytes % (A) 4 %; Neutrophils # (A) 4.2 k/uL (1.3-7.7); Neutrophils % (A) 63 %; Platelet Count 335 k/uL (150-450); RBC 4.57 m/uL (3.80-5.40); RDW 15.3 % (11.5-15.5); WBC 6.7 k/uL (3.8-10.6)
[2024-07-30 13:19] LABS: ALT 28 U/L (4-34); AST 63 U/L (14-36); African American GFR (CKD) >90 (>60 ml/min/1.73 sqM); Alkaline Phosphatase 62 U/L (38-126); Amylase 50 U/L (30-110); Anion Gap 5 mmol/L; Blood Urea Nitrogen 12 mg/dL (7-17); Calcium 8.8 mg/dL (8.4-10.2); Carbon Dioxide 27 mmol/L (22-30); Chloride 108 mmol/L (98-107); Glucose 88 mg/dL (74-99); Lipase 236 U/L (23-300); Magnesium 2.1 mg/dL (1.6-2.3); Non-African American GFR(CKD) >90 (>60 ml/min/1.73 sqM); Potassium 4.3 mmol/L (3.5-5.1); Sodium 140 mmol/L (137-145); Total Bilirubin 0.4 mg/dL (0.2-1.3); Total Protein 6.8 g/dL (6.3-8.2)
[2024-07-30] MEDS: methylPREDNISolone SOD SUCCI 125 MG/2 ML VIAL IV STA (13:28)
[2024-07-30] MEDS: diphenhydrAMINE 50 MG/ML 1 ML VIAL IVP STA (13:28)
[2024-07-30] MEDS: FAMOTIDINE 20 MG/2 ML VIAL IV STA (13:28)
[2024-07-30] MEDS: HYDROmorphone 0.5 MG/0.5 ML SYRINGE IVP STA (13:29)
[2024-07-30] MEDS: ONDANSETRON 4 MG/2 ML VIAL IVP STA (14:09)
[2024-07-30 14:18] LABS: Appearance,Urine Clear (Clear); Bilirubin,Urine Negative (Negative); Blood,Urine Negative (Negative); Color,Urine Colorless; Glucose,Urine (UA) Negative (Negative); Ketones,Urine Negative (Negative); Leukocyte Esterase,Urine Negative (Negative); Nitrite,Urine Negative (Negative); PH, Urine 5.5 (5.0-8.0); Protein,Urine Negative (Negative); Specific Gravity,Urine 1.015 (1.001-1.035); Urobilinogen,Urine <2.0 mg/dL (<2.0)
[2024-07-30 14:20] LABS: INR 0.9 (<1.2); Partial Thromboplastin Time 23.9 sec (22.0-30.0)
--- NOTE | 2024-07-30 14:24 | CT ---
EXAMINATION TYPE: CT abdomen pelvis w con DATE OF EXAM: 07/30/2024 COMPARISON: CT chest abdomen and pelvis dated 06/28/2024 CLINICAL INDICATION: Female, 43 years old with history of abdominal pain; PHH, ABD PAIN/ OVARIAN MASS / HX ADRENAL CA TECHNIQUE: Performed without Oral Contrast and with IV Contrast, patient injected with 100 mL of Isovue 300. CT DLP: 787.[address] CTDI: mGy Automated exposure control for dose reduction was used. FINDINGS: The lung bases are clear. There are postsurgical changes involving the stomach. There is surgical absence of the gallbladder. There is no biliary ductal dilatation. There is no focal mass or organomegaly involving the liver, pancreas, spleen or adrenal glands. There is surgical absence of the right adrenal gland. There is no solid renal mass or hydronephrosis and there is homogeneous contrast enhancement of the r enal parenchyma. The caliber the abdominal aorta is normal is no retroperitoneal adenopathy or hemorr gabriele. There is diffuse thickening of the cecum and ascending colon which appears to be fluid attenuation in dicating diffuse bowel wall edema. The findings raise the question of an acute colitis. There is no b owel obstruction. No inflammatory changes are identified in the mesentery. There is no free intraperitoneal air or fluid. As on the prior study from 10/29/2023 and transvaginal ultrasound on 07/22/2024 there are bilateral adn exal masses which are unchanged. Etiology indeterminate from this exam and MRI of the pelvis is recom mended to evaluate adnexal masses for the possibility of neoplasm. The osseous structures and soft tissues are intact. IMPRESSION: 1. Diffuse bowel wall thickening involving the cecum and ascending colon likely secondary to diffuse bowel wall edema raising the question of acute colitis. No bowel obstruction, free intraperitoneal ai r or fluid. 2. Surgical absence of the gallbladder and right adrenal gland. 3. Bilateral adrenal masses unchanged compared to the prior studies as described above. MRI of the pe lvis recommended to rule out ovarian neoplasm. [facility], , 07/30/2024 2:22 PM
[2024-07-30] MEDS: HYDROmorphone 1 MG/ML 1 ML SYRINGE IVP STA (14:27)
[2024-07-30] MEDS: traMADol 50 MG STARTER PACK 3 TAB BTL PO STA (15:46)
== END 2024-07-30 15:47 | disposition home or self-care (01) ==
LOC: EC 11:06
DX: K52.9 Noninfective gastroenteritis and colitis, unspecified (principal); Z88.0 Allergy status to penicillin; Z91.041 Radiographic dye allergy status; Z88.5 Allergy status to narcotic agent
CPT/HCPCS: 36415; 93005; 84439; 80053; 84443; 82150; 83690; 83735; 84484; 85025; 85610; 85730; 81003; 74177; 99285; 96374; 96375; 96376; J1200; J2405; J3490; J1171 ×2; Q9967; J2919

== ENCOUNTER → 2024-08-14 | Outpatient (CLI) | payer OTHER ==
--- NOTE | 2024-08-14 16:36 | MR ---
EXAMINATION TYPE: MR abdomen wo/w con DATE OF EXAM: 08/14/2024 3:26 PM COMPARISON: CT scan abdomen from 07/30/2024.. CLINICAL INDICATION: Female, 43 years old with history of R93.89 ABNORMAL FINDINGS ON DX IMAGING; PHH , RLQ, LUQ and pelvic pain. TECHNIQUE: Multiplanar multi-sequence imaging was performed without contrast. Post contrast imaging was performed. Post IV contrast subtraction images were also submitted for review. IV Contrast: 7.5 mL Gadavist FINDINGS: LOWER CHEST: No gross irregularity. ABDOMEN . Liver: No evidence for hepatic steatosis or cirrhosis. Gallbladder and Bile ducts: Gallbladder surgically absent. No abnormal biliary ductal dilatation. Pancreas: No ductal dilation. No evidence for solid mass. Spleen: Normal for size. Adrenal glands: Right adrenal gland surgically absent. Kidneys: No evidence for obstructive uropathy. No suspicious renal masses. Stomach and Bowel: Previously gastrectomy with associated susceptibility artifact. Small hilar hernia . Visualized small and large bowel demonstrate no evidence of abnormal wall thickening or adjacent me senteric inflammatory changes. Visualized portion of the appendix unremarkable. No small bowel obstru ction. Moderate to large volume diffuse colonic stool burden. Retroperitoneum/Peritoneum: No evidence of pneumoperitoneum or free fluid. Vasculature: No aortic aneurysm. Musculoskeletal: The osseous structures appear intact. Lymph Nodes: No gross evidence for lymphadenopathy. Abdominal wall: Unremarkable. IMPRESSION: 1. No acute abnormality in the visualized abdomen. Specifically, no residual abnormal small or large bowel wall thickening or mesenteric inflammation. Please note that the pelvis was not imaged on this MRI abdomen exam and further evaluation with dedicated MRI pelvis would be advised based on prior re commendations/imaging from studies dated 07/30/2024 and 07/22/2024. 2. Moderate to large volume diffuse colonic stool burden suggesting constipation. [facility], Workstation: [id number], 08/14/2024 4:34 PM
== END ==
LOC: RADMRIMAIN 14:16
PROVIDERS: ATTEND Family Medicine
DX: K46.9 Unspecified abdominal hernia without obstruction or gangrene (principal); R93.89 Abnormal findings on diagnostic imaging of other specified body structures; R19.5 Other fecal abnormalities
CPT/HCPCS: 74183

== ENCOUNTER → 2024-08-17 | Outpatient (CLI) | payer OTHER ==
--- NOTE | 2024-08-20 17:47 | MR ---
EXAMINATION TYPE: MR pelvis wo/w con DATE OF EXAM: 08/17/2024 COMPARISON: MR abdomen 08/14/2024, CT abdomen and pelvis 07/30/2024, CT chest abdomen and pelvis 2023, transvaginal ultrasound 07/22/2024 CLINICAL INDICATION:Female, 43 years old with history of R93.89 ABNORMAL FINDINGS ON DX IMAGING; PHH, pelvic pain, bloating, digestive issues. TECHNIQUE: Triplane multisequence imaging was performed of the pelvis. Then the patient was given c ontrast/gadolinium, 7.5 cc of Gadavist and multiple post contrast sequences where obtained in two narcisa jc. FINDINGS: Reproductive: Vagina: Unremarkable. Uterus: The uterus is retroverted in position. Uterus measures 6.7 x 4.2 x 5.6 cm (craniocaudal by AP by transverse dimension). The endometrium and junctional zone are within normal limits. Multiple na bothian cysts are seen in the lower uterine segment. One of these cysts demonstrate some mild T1 hype rintensity consistent with a complex nabothian cyst (series 601, image 23). There is a posterior uter ine pedunculated T1/T2 hypointense lesion measuring 2.4 x 2.1 cm corresponding to prior ultrasound. T his is consistent with a pedunculated fibroid. Ovaries: Left ovarian 2.6 x 2.2 cm peripherally enhancing cystic lesion with thin septation (series 1 001, image 33). No mural nodularity. Layering fluid identified within this lesion (series 801, image 31). Additional follicles identified within the left ovary. No suspicious enhancing right ovarian lesion. Follicles demonstrated. Bladder: Underdistended, limiting evaluation. Bowel: Unremarkable as visualized. Peritoneum: No free fluid. No evidence of adenopathy. Vasculature: Unremarkable. Abdominal wall/soft tissues: Unremarkable. Musculoskeletal: Bone marrow signal is within normal signal intensity. IMPRESSION: 1. Pedunculated 2.4 cm uterine fibroid. 2. Left ovarian 2.6 cm cystic lesion with fluid/fluid level suggesting a hemorrhagic cyst. No suspici ous contrast enhancement to suggest malignancy. 3. No suspicious right ovarian lesion. [facility], , 08/20/2024 5:44 PM
== END | disposition home or self-care (01) ==
LOC: RADMRIMAIN 18:18
PROVIDERS: ATTEND Family Medicine
DX: N83.202 Unspecified ovarian cyst, left side (principal); D25.9 Leiomyoma of uterus, unspecified; R93.89 Abnormal findings on diagnostic imaging of other specified body structures; N85.4 Malposition of uterus; R14.0 Abdominal distension (gaseous)
CPT/HCPCS: 72197; A9585

== ENCOUNTER 2025-03-03 07:06 | Day surgery (SDC) | payer OTHER ==
[2025-03-03] MEDS: IV FLUID CONTINUATION 1,000 ML IV ONE ×2 (07:29→08:43)
[2025-03-03 07:30] VITALS: TEMP 97
[2025-03-03] MEDS: LACTATED RINGERS 1,000 ML IV SCH (07:41)
[2025-03-03] MEDS ORDERED: MIDAZOLAM 2 MG/2 ML VIAL ONE (08:22)
[2025-03-03] MEDS ORDERED: ONDANSETRON 4 MG/2 ML VIAL ONE (08:22)
[2025-03-03] MEDS ORDERED: fentaNYL (PF) 50 MCG/ML 2 ML AMP ONE (08:22)
[2025-03-03 08:38] LABS: ALT 14 U/L (4-34); AST 31 U/L (14-36); Glucose 87 mg/dL (74-99)
[2025-03-03 08:48] VITALS: RESP 16
--- NOTE | 2025-03-03 08:48 | P.PCN ---
Description of Procedure: Preprocedure diagnosis. Neurological symptoms. Multiple sclerosis. Postprocedure diagnosis. As above. Procedure done. Lumbar puncture and collection of cerebrospinal fluid. Anesthesia. Local infiltration with anesthetics. Continuous pulse ox, EKG, blood pressure and verbal communication was maintained with the patient. Versed 2 mg. Fentanyl 100 mcg. IV. Blood loss. None. Indication. Discussed the procedure, alternatives, complications which may include infection, nerve damage, paralysis, aggravation of the symptoms especially bleeding in the spine and post dural puncture headache with the patient. Asked the patient to lay flat on bed today as much as possible except going to bathrooms. Next 3 days to avoid increased pressure like coughing sneezing constipation, drink lots of fluids specially caffeinated beverages,avoid lifting any heavy weights. The patient understands and questions were answered. Procedure note. After getting concentration in the procedure room in sitting position. Back prepped with chlorhexidine and draped in sterile fashion. After injecting 5 mL of 1% lidocaine subcutaneously, a 23-gauge spinal needle was introduced at L4-5 interspace. Positive CSF, negative blood, negative paresthesia. CSF color was clear. Attempt x 1. CSF pressure was not measured. CSF was collected in 4 supplied sterile containers in sequence. Spinal needle was taken out and bandage was applied. Disposition. Patient tolerated the procedure well. No complication. Advised patient to lay flat one-hour postprocedure. The rest of the day today try to lay flat as much as possible. Next 3 days drink lots of fluid especially caffeinated beverages, and avoid constipation cough and doing strenuous physical work. Discharged home in stable condition.
[2025-03-03 09:46] LABS: Glucose,CSF 50 mg/dL (40-70); Total Protein,CSF 38 mg/dL (12-60)
[2025-03-03 09:51] VITALS: BP 107/75; PULSE 61
[2025-03-03 12:44] LABS: Appearance,CSF Clear; CSF Tube Number 4
[2025-03-03 12:45] LABS: Nucleated Cells, CSF 0 u/L (0-5); Red Blood Cell,CSF 1 u/L (0-10)
[2025-03-03 13:32] LABS: Anti-Smith Ab Interp Negative (Negative); DNA Double-Stranded Negative (Negative)
[2025-03-04 13:23] LABS: IgG/Albumin Index (CSF) 0.48 (0.00 - 0.77); Immunoglobulin G 812 mg/dL (700 - 1600)
[2025-03-04 15:03] LABS: APTT 36 Sec(s) (<43); Dilute Russell Viper Venom 31 Sec(s) (<44)
[2025-03-04 16:17] LABS: Rheumatoid Factor, Qnt <15 IU/mL (0-15)
== END 2025-03-03 10:00 | disposition home or self-care (01) ==
LOC: ORPAIN 07:06
PROVIDERS: ATTEND Pain Medicine Interventional Pain Medicine
DX: G35 Multiple sclerosis (principal); Z88.5 Allergy status to narcotic agent; Z88.0 Allergy status to penicillin; Z88.8 Allergy status to other drugs, medicaments and biological substances
CPT/HCPCS: 62270; 86235 ×3; 84157; 82945; 82040; 82042; 82784; 83916; 82947; 84436; 84443; 84450; 84460; 85730; 86431; 85613; 89050; 86618; 86780; 86038; 86225; J2250; J2405; J3010; 88108; 99152